=== PATIENT | male | born 1980 | race Hispanic/Latino ===

== ENCOUNTER 2021-06-24 03:36 | Emergency (ER) | payer SELFPAY ==
[~2021-06-24] VITALS: Ht 182.9 cm; Wt 77.1 kg
[2021-06-24 03:52] VITALS: BP 125/73
[2021-06-24] MEDS ORDERED: LACTATED RINGERS 1000ML 1,000 ML IV ONE (05:30)
[2021-06-24 05:52] LABS: BASOPHILS % (AUTO) 0.5 % (0.0-5.0); EOSINOPHILS % (AUTO) 1.8 % (0.0-8.0); HEMATOCRIT 39.2 % (42-54); LYMPHOCYTES % (AUTO) 20.5 % (21.0-51.0); MEAN CORPUSCULAR HEMOGLOBIN 30.8 pg (27.0-33.0); MEAN CORPUSCULAR HGB CONC 33.7 g/dL (32.0-36.0); MEAN CORPUSCULAR VOLUME 91.6 fL (79-99); MONOCYTES % (AUTO) 8.9 % (3.0-13.0); NEUTROPHILS % (AUTO) 68.1 % (40.0-77.0); PLATELET COUNT (AUTO) 413 K/uL (130-400); RED BLOOD CELL COUNT(AUTO) 4.28 MIL/uL (4.50-6.20); RED CELL DISTRIBUTION WIDTH 12.8 % (11.0-15.5); WHITE BLOOD COUNT (AUTO) 9.3 K/uL (4.8-10.8)
[2021-06-24 06:10] VITALS: BP 139/85
[2021-06-24 06:52] LABS: ALBUMIN 3.6 g/dL (3.5-5.0); BILIRUBIN,TOTAL 0.7 mg/dL (0.2-1.0); CREATININE 1.3 mg/dL (0.5-1.5); POTASSIUM 3.1 mmol/L (3.5-5.1); TOTAL PROTEIN, SERUM 6.9 g/dL (6.0-8.3)
[2021-06-24] MEDS ORDERED: IOHEXOL-350 75 ML VIAL IV ONE (07:42)
[2021-06-24 08:00] VITALS: BP 143/95
[2021-06-24 12:00] VITALS: BP 124/77
[2021-06-24 16:22] VITALS: BP 146/58
== END 2021-06-24 17:57 | disposition short-term general hospital (02) ==
LOC: EDH 03:36 → EDBD 03:36 → EDH 17:57
DX: S36.113A Laceration of liver, unspecified degree, initial encounter (principal); G89.18 Other acute postprocedural pain; R10.84 Generalized abdominal pain; Z98.890 Other specified postprocedural states; W34.09XA Accidental discharge from other specified firearms, initial encounter; Y93.89 Activity, other specified; Y92.89 Other specified places as the place of occurrence of the external cause; Y99.8 Other external cause status
CPT/HCPCS: 36415; 71045; 74177; 80053; 85025; 86140; 99285; Q9967

== ENCOUNTER 2024-05-23 21:29 | Inpatient (IN) | payer BC ==
[~2024-05-23] VITALS: Ht 180.3 cm; Wt 94.3 kg
[2024-05-23 22:11] LABS: HEMATOCRIT 41.8 % (42-54); MEAN CORPUSCULAR HEMOGLOBIN 30.4 pg (27.0-33.0); MEAN CORPUSCULAR HGB CONC 36.1 g/dL (32.0-36.0); MEAN CORPUSCULAR VOLUME 84.3 fL (79-99); PLATELET COUNT (AUTO) 284 K/uL (130-400); RED BLOOD CELL COUNT(AUTO) 4.96 MIL/uL (4.50-6.20); RED CELL DISTRIBUTION WIDTH 13.6 % (11.0-15.5); WHITE BLOOD COUNT (AUTO) 12.3 K/uL (4.8-10.8)
[2024-05-23 22:32] LABS: BILIRUBIN,TOTAL 0.6 mg/dL (0.2-1.0); CREATININE 1.2 mg/dL (0.5-1.3); PHOSPHORUS 1.2 mg/dL (2.5-4.9); TOTAL PROTEIN, SERUM 7.5 g/dL (6.0-8.3)
[2024-05-23 22:40] LABS: APPEARANCE,URINE CLEAR (CLEAR); BILIRUBIN,URINE NEGATIVE (NEGATIVE); COLOR,URINE COLORLESS (YELLOW); GLUCOSE, URINE (UA) NEGATIVE (NEGATIVE); KETONES,URINE NEGATIVE (NEGATIVE); LEUKOCYTE ESTERASE ,URINE NEGATIVE Leu/uL (NEGATIVE); NITRATE,URINE NEGATIVE (NEGATIVE); PH,URINE 7.5 (5.0-8.0); PROTEIN,URINE NEGATIVE (NEGATIVE); UROBILINOGEN,URINE 0.2 mg/dL (0.2-1.0)
[2024-05-23 22:41] LABS: ADD UA MICROSCOPIC YES
[2024-05-23 22:45] LABS: BACTERIA,URINE RARE /HPF (None Seen); MUCUS,URINE RARE LPF (None Seen); WBC,URINE 0-1 /HPF (0-1)
[2024-05-23] MEDS: hydrALAZine 20MG/ML VIAL ONE (22:59)
[2024-05-23] MEDS: NITROGLYCERIN 1GM OINT 1 INCH/1GM TD ONE (23:00)
[2024-05-23] MEDS: MORPHINE 4 MG SYG IVP ONE (23:01)
[2024-05-23] MEDS: hydrALAZine 20MG/ML VIAL IV ONE (23:11)
[2024-05-23] MEDS: POTASSIUM CHLORIDE 10% ELIXIR 20 MEQ/15 ML UDCUP PO ONE (23:13)
[2024-05-23] MEDS: CLONIDINE HCL 0.2 MG TABLET PO ONE (23:59)
[2024-05-24] VITALS (25 sets, daily range): BP systolic 118–154; BP diastolic 55–92; PULSE 81–102; RESP 11–24; TEMP 98; O2SAT 94
[2024-05-24] MEDS ORDERED: LACTULOSE 20 GM/30 ML UDCUP PO PRN
[2024-05-24] MEDS ORDERED: acetaMINOPHEN 650 MG SUPPOSITORY RC PRN
[2024-05-24] MEDS ORDERED: hydrALAZine 20MG/ML VIAL IV PRN
[2024-05-24] MEDS ORDERED: DOCUSATE SODIUM 100 MG CAP PO PRN
[2024-05-24] MEDS ORDERED: CLONIDINE HCL 0.1 MG TABLET PO PRN
[2024-05-24 00:14] LABS: ABG BASE EXCESS 8.7 mmol/L (-2.0-3.0); ABG HCO3 31.4 mmol/L (21.0-28.0); ABG OXYGEN SATURATION 96.6 % (95.0-99.0); ABG PCO2 36 mmHg (35-48); ABG PH 7.553 (7.35-7.450); CARBON MONOXIDE 0.6; DEVICE COMMENT RR; HHb 3.4; VENT MODE, BG RA (ROOM AIR)
[2024-05-24 00:47] LABS: AMPHET/METH SCREEN,URINE NEGATIVE (NEGATIVE); BARBITURATE SCREEN, URINE NEGATIVE (NEGATIVE); BENZODIAZEPINES SCREEN,URINE NEGATIVE (NEGATIVE); CANNABINOID SCREEN,URINE POSITIVE (NEGATIVE); COCAINE SCREEN,URINE NEGATIVE (NEGATIVE); OPIATE SCREEN,URINE NEGATIVE (NEGATIVE); PHENCYCLIDINE SCREEN,URINE NEGATIVE (NEGATIVE)
[2024-05-24] MEDS: PROMETHAZINE HCL 25 MG/ML 1ML AMPULE IM PRN (02:02)
[2024-05-24] MEDS: HALOPERIDOL INJ 5 MG/ML VIAL IM ONE (02:02)
[2024-05-24] MEDS: POTASSIUM CHLORIDE 10MEQ/100ML 100 ML IV ONE ×2 (02:05→03:03)
[2024-05-24 02:28] LABS: SARS-CoV-2, RNA, NAAT NEGATIVE SARS CoV-2 (NEGATIVE)
[2024-05-24 02:35] LABS: INFLUENZA TYPE A Negative For Type A (NEGATIVE); INFLUENZA TYPE B Negative For Type B (NEGATIVE)
[2024-05-24] MEDS: niCARDIpine 25MG INJ IV ONE ×3 (03:02→06:19)
[2024-05-24] MEDS: CALCIUM GLUC 1GM/10ML VIAL IV ONE (03:02)
[2024-05-24] MEDS: TEMAZEPAM 15 MG CAPSULE PO PRN (03:03)
[2024-05-24] MEDS: ONDANSETRON 4MG INJ IVP PRN (03:03)
[2024-05-24] MEDS: acetaMINOPHEN 325 MG TAB PO PRN (03:03)
[2024-05-24] MEDS: NS-20 MEQ KCL 1000ML 1,000 ML IV SCH (03:05)
[2024-05-24] MEDS: HEPARIN 5,000 UNIT VIAL SQ SCH (03:48)
[2024-05-24] MEDS: ASPIRIN 81MG CHEW TAB PO ONE (03:49)
[2024-05-24 04:00] LABS: BASOPHILS # (AUTO) 0.03 K/uL (0.00-0.20); BASOPHILS % (AUTO) 0.2 % (0.0-5.0); EOSINOPHILS # (AUTO) 0.01 K/uL (0.00-0.70); EOSINOPHILS % (AUTO) 0.1 % (0.0-8.0); HEMATOCRIT 37.6 % (42-54); IMMATURE GRANULOCYTE ABSOLUTE 0.06 K/uL (0-1); LYMPHOCYTES # (AUTO) 0.8 K/uL (1.0-4.8); LYMPHOCYTES % (AUTO) 6.3 % (21.0-51.0); MEAN CORPUSCULAR HEMOGLOBIN 30.5 pg (27.0-33.0); MEAN CORPUSCULAR HGB CONC 35.6 g/dL (32.0-36.0); MEAN CORPUSCULAR VOLUME 85.6 fL (79-99); MONOCYTES # (AUTO) 0.6 K/uL (0.1-1.0); MONOCYTES % (AUTO) 4.8 % (3.0-13.0); NEUTROPHILS % (AUTO) 88.1 % (40.0-77.0); PLATELET COUNT (AUTO) 250 K/uL (130-400); RED BLOOD CELL COUNT(AUTO) 4.39 MIL/uL (4.50-6.20); RED CELL DISTRIBUTION WIDTH 13.3 % (11.0-15.5); WHITE BLOOD COUNT (AUTO) 12.5 K/uL (4.8-10.8)
[2024-05-24 04:24] LABS: CREATININE 1.3 mg/dL (0.5-1.3); MAGNESIUM 1.8 mg/dL (1.80-2.40); PHOSPHORUS 1.2 mg/dL (2.5-4.9); THYROID STIMULATING HORMONE 1.11 uIU/mL (0.36-3.74)
[2024-05-24] MEDS: niCARDIpine 25MG INJ 25 MG in 0.9% NACL 250ML 240 ML IV SCH (04:30)
[2024-05-24] MEDS ORDERED: KCL 20 MEQ ERTAB PO PRN (04:30)
[2024-05-24 04:32] LABS: POTASSIUM 1.8 mmol/L (3.5-5.1)
[2024-05-24] MEDS: KCL 20 MEQ ERTAB PO ONE ×2 (04:44→12:00)
[2024-05-24] MEDS ORDERED: PHARMACY COMMUNICATION MISC SCH (05:30)
[2024-05-24] MEDS: HEPARIN 25,000 UNITS/250ML D5W 250 ML IV SCH (06:18)
[2024-05-24] MEDS ORDERED: POTASSIUM CHLORIDE 10% ELIXIR 20 MEQ/15 ML UDCUP PO PRN (06:30)
[2024-05-24 06:43] LABS: INR 1.06 (0.85-1.15); PROTHROMBIN TIME 11.4 SEC (9.6-11.6)
[2024-05-24 06:44] LABS: PARTIAL THROMBOPLASTIN TIME 27.3 SEC (26.3-35.5)
[2024-05-24] MEDS: INSULIN HUMULIN R 100 UNIT/ML 3ML SQ SCH (07:30)
[2024-05-24] MEDS: MAGNESIUM 2GM PREMIX 50ML 50 ML IV PRN (07:40)
[2024-05-24] MEDS: KCL 20 MEQ ERTAB PO SCH (08:29)
[2024-05-24] MEDS: PANTOPRAZOLE 40 MG TAB DR PO SCH (08:29)
[2024-05-24] MEDS ORDERED: POTA-364 PO (09:00)
[2024-05-24] MEDS: LISINOPRIL 20 MG TABLET PO SCH (09:21)
[2024-05-24] MEDS: KCL 20 MEQ ERTAB PO PRN (12:26)
[2024-05-24] MEDS: LISINOPRIL 10 MG TABLET PO ONE (12:28)
[2024-05-24 12:52] LABS: INR 1.05 (0.85-1.15); PROTHROMBIN TIME 11.3 SEC (9.6-11.6)
[2024-05-24 12:54] LABS: PARTIAL THROMBOPLASTIN TIME 48.1 SEC (26.3-35.5)
[2024-05-24] MEDS: POTASSIUM PHOS 15 mMOL+NS250ML 250 ML IV PRN (16:02)
[2024-05-24] MEDS ORDERED: FAMOTIDINE 20MG TAB PO SCH (21:00)
[2024-05-24] MEDS ORDERED: HEPARIN 5,000 UNIT VIAL SQ SCH (21:00)
[2024-05-24] MEDS ORDERED: ATORVASTATIN 40 MG TABLET PO SCH (21:00)
[2024-05-25] MEDS ORDERED: LISINOPRIL 40 MG TABLET PO SCH (09:00)
[2024-05-25] MEDS ORDERED: ASPIRIN 81MG CHEW TAB PO SCH (09:00)
== END 2024-05-24 17:00 | disposition left against medical advice (07) | DRG 282 ==
LOC: EDH 21:29 → EDHIP 23:47 → 2BH 05-24 00:23 → 2DH 05-24 14:52
PROVIDERS: ADMIT Internal Medicine; ATTEND Internal Medicine
DX: I16.1 Hypertensive emergency (principal); I21.A1 Myocardial infarction type 2; I10 Essential (primary) hypertension; Z20.822 Contact with and (suspected) exposure to COVID-19; E86.0 Dehydration; Z53.29 Procedure and treatment not carried out because of patient's decision for other reasons; F12.10 Cannabis abuse, uncomplicated; E87.6 Hypokalemia; R73.9 Hyperglycemia, unspecified; D72.829 Elevated white blood cell count, unspecified; E83.51 Hypocalcemia; E83.39 Other disorders of phosphorus metabolism; R31.9 Hematuria, unspecified; K59.00 Constipation, unspecified; F41.9 Anxiety disorder, unspecified; G47.33 Obstructive sleep apnea (adult) (pediatric); Z79.899 Other long term (current) drug therapy; Z91.148 Patient's other noncompliance with medication regimen for other reason
CPT/HCPCS: 36415; 36600; 71045; 76770; 80048; 80053; 80305; 81001; 82435; 82803; 82947; 82948; 83605; 83735; 84100; 84132; 84295; 84443; 84484; 85018; 85025; 85027; 85610; 85730; 87635; 87804; 93005; 93306; 93975; G0378; J0360; J0612; J1630; J1644; J2270; J2405; J2550; J3475; J3480; J3490; J7050